=== PATIENT | female | born 1960 | race Caucasian/White ===

== ENCOUNTER 2017-06-25 07:12 | Emergency (ER) | payer SELFPAY ==
[2017-06-25] MEDS ORDERED: IV NORMAL SALINE 1,000ML 1,000 ML IV SCH (07:37)
[2017-06-25] MEDS ORDERED: ONDANSETRON PF 4 MG/2 ML VIAL. IV ONE ×2 (07:45→12:45)
[2017-06-25] MEDS: fentaNYL PF 100 MCG/2 ML VIAL IV PRN ×2 (07:47→08:33)
--- NOTE | 2017-06-25 07:49 | PHYS DOC ---
Adult General Chief Complaint Chief Complaint: abdominal pain HPI HPI Patient is a 56-year-old female to the ED by her [id number] for the complaint of abdominal pain for one week. Patient is usually in good health. She has no chronic medical problems. She developed right upper quadrant abdominal pain about a week ago today. She's had some nausea, vomiting, anorexia , and diarrhea. Denies blood in the vomit or diarrhea. She's been pretty much in bed for a week. She's never had anything like this before. No one else at home is sick. At this time the pain is 10 out of 10. She has had fevers and shaking chills. No UTI symptoms although she did have a UTI about 3 weeks ago. That was diagnosed because she had dysuria and lower abdominal discomfort, she finished her antibiotics, the symptoms went away and have not recurred. 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 She has been off work for several week because of being sick. She usually has perfect attendance. Denies smoking, alcohol, or drugs. Patient has had 3 C-sections, no other surgeries. She saw Dr. Finley in the office on and was prescribed ondansetron and told to take Imodium. Her last diarrhea stool was just a little bit when she went to the bathroom here in the ED. Review of Systems Review of Systems Constitutional: Positive for fever and chills Eyes: Denies change in visual acuity, redness, or eye pain [] HENT: Denies nasal congestion or sore throat [] Respiratory: It hurts to breathe, she has coughed up a little phlegm, it does not sound like primarily a cough however Cardiovascular: Denies chest pain GI: As in history of present illness : Denies dysuria currently, recent UTI as in history of present illness Musculoskeletal: Denies back pain or joint pain [] Integument: Denies rash or skin lesions [] Neurologic: She has had a bad headache Allergies Allergies Allergies Coded Allergies Type Severity Reaction Last Updated Verified No Known Drug Allergies 06/25/17 No Physical Exam Physical Exam Constitutional: Well developed, well nourished, appears uncomfortable, she is ambulatory, alert, mentating normally. Temp 99.0. HENT: Normocephalic, atraumatic, bilateral external ears normal, oropharynx dry , nose normal. [] Eyes: conjunctiva normal, no discharge. [] Neck: Normal range of motion, no stridor. [] Cardiovascular:Heart irregularly irregular tachycardia Lungs & Thorax: Bilateral breath sounds clear to auscultation [] Abdomen: Bowel sounds normal, soft, nondistended, no masses, no pulsatile masses. Tender only in the right upper quadrant with positive Holman's. Negative right lower quadrant tenderness. No rebound or guarding. Skin: Warm, dry, no erythema, no rash. [] Extremities: No tenderness, no cyanosis, no clubbing, ROM intact, no edema. [] Neurologic: Alert and oriented X 3, normal motor function, normal sensory function, no focal deficits noted. [] EKG EKG 12-lead EKG read by me. Sinus rhythm with very frequent PACs. Heart rate 127. Underlying sinus rate appears to be about 100. There is mild ST depression in V4 through V6. There is no ST elevation. Possible ischemia versus rate dependent. [id number][] Radiology/Procedures Radiology/Procedures Right upper quadrant ultrasound negative for gallbladder etiology. CT scan shows an 8 mm stone in the proximal right ureter with some hydronephrosis. Course & Med Decision Making Course & Med Decision Making Pertinent Labs and Imaging studies reviewed. (See chart for details) 56-year-old healthy female brought by her [id number] with a chief complaint of right upper quadrant abdominal pain for one week, accompanied by fever, chills, nausea, vomiting, anorexia, small amount of diarrhea. She appears dehydrated, she is tachycardic and gave us only a small urine sample that is dark in appearance. We will give her some IV fluids, IV pain and nausea medications, do some labs, chest x-ray, and right upper quadrant ultrasound. She is agreeable to this plan. Patient's initial heart rate was 130s to 150s, irregular but it turned out to be sinus with PACs. She was given 2 L of IV fluids in the ED and her heart rate came down to the 90s. She felt Much better and her color improved after her hydration. Patient's imaging studies show a large stone in the proximal right ureter. Labs concerning for a mildly elevated troponin in addition to some leukocytosis. Patient needs to be hospitalized where she can have a urologist, I discussed this with the patient and her daughter. They are in favor of transfer to [facility]. I called [facility] transfer line and spoke with the hospitalist on-call who will accept the patient to be transferred to [facility]. Also made them aware of her mild troponin elevation, tachycardia with PACs. Transfer paperwork was completed, patient transferred by EMS to [facility]. Patient remained stable and improved in the ED [] Dragon Disclaimer Dragon Disclaimer This chart was dictated in whole or in part using Voice Recognition software in a busy, high-work load, and often noisy Emergency Department environment. It may contain unintended and wholly unrecognized errors or omissions. Departure Departure: Impression: Primary Impression: Calculus of proximal right ureter Additional Impressions: Ureteral colic Elevated serum creatinine Elevated troponin Disposition: XF SHT-TRM HOSP Condition: IMPROVED Problem Qualifiers GUILLERMO CRAIN MD Jun 25, 2017 07:49
--- NOTE | 2017-06-25 07:50 | EKG ---
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
[2017-06-25 08:03] LABS: BILIRUBIN,URINE NEG (NEG); CLARITY,URINE HAZY; COLOR,URINE YELLOW; GLUCOSE,URINE NEG (NEG); NITRITE,URINE NEG (NEG); UROBILINOGEN,URINE 1 mg/dL (0.2 mg/dL)
[2017-06-25 08:06] LABS: BASO % 0 % (0-3); EOS # 0.3 x10^3/uL (0.0-0.7); EOS % 2 % (0-3); HEMATOCRIT 33.6 % (36.0-47.0); HEMOGLOBIN 11.3 g/dL (12.0-15.5); LYMPH # 0.2 x10^3/uL (1.0-4.8); LYMPH % 1 % (24-48); MEAN CORPUSCULAR HEMOGLOBIN 30 pg (25-35); MEAN CORPUSCULAR HGB CONC 34 g/dL (31-37); MEAN CORPUSCULAR VOLUME 89 fL (79-100); MONO # 0.1 x10^3/uL (0.0-1.1); MONO % 1 % (0-9); NEUT % 96 % (31-73); PLATELET COUNT 81 x10^3/uL (140-400); RED BLOOD COUNT 3.77 x10^6/uL (3.50-5.40); RED CELL DISTRIBUTION WIDTH 14.1 % (11.5-14.5); WHITE BLOOD COUNT 12.6 x10^3/uL (4.0-11.0)
[2017-06-25] MEDS ORDERED: IV NORMAL SALINE 1,000ML 1,000 ML IV ONE (08:15)
--- NOTE | 2017-06-25 08:19 | RAD ---
EXAM: CHEST 1 VIEW History: Right upper quadrant pain, tachycardia COMPARISON: None available. TECHNIQUE: Single portable radiograph of the chest FINDINGS: The cardiac silhouette is unremarkable. The lungs are clear bilaterally. The costophrenic sulci are clear and well demarcated. IMPRESSION: No radiographic evidence of an acute cardiopulmonary process.
[2017-06-25 08:21] LABS: ALBUMIN 1.9 g/dL (3.4-5.0); ALBUMIN/GLOBULIN RATIO 0.4 (1.0-1.7); CALCIUM 8.3 mg/dL (8.5-10.1); CREATININE 2.1 mg/dL (0.6-1.0); GFR 24.4; TOTAL BILIRUBIN 0.8 mg/dL (0.2-1.0); TOTAL PROTEIN 6.2 g/dL (6.4-8.2)
[2017-06-25 08:22] LABS: POTASSIUM 2.7 mmol/L (3.5-5.1)
[2017-06-25] MEDS ORDERED: POTASSIUM CHLORIDE 20 MEQ/15 ML ORAL LIQUID. PEG ONE (08:30)
--- NOTE | 2017-06-25 09:14 | RAD ---
Examination: Ultrasound abdomen limited History: History of right upper quadrant pain Comparison: None available Findings: The pancreas is poorly visualized. The visualized pancreas grossly appears unremarkable. The visualized IVC, is patent. No evidence of gallstones identified within the gallbladder. The common bile duct measures 4.6 mm in transverse dimension. The liver measures 19.5 cm in length. The right kidney measures 13.6 x 6.9 x 6.8 cm. There is mild prominent appearing right renal pelvis and the prominent calyces likely mild hydronephrosis. Impression: 1. Mild right hydronephrosis. 2. No evidence of gallstones. 3. Mild hepatomegaly.
--- NOTE | 2017-06-25 10:02 | RAD ---
Examination: CT of the abdomen pelvis with contrast History: History of right upper quadrant pain. Comparison: None available Technique: Axial CT images of the abdomen pelvis were performed without contrast with coronal and sagittal reformats are performed PQRS Compliance Statement: One or more of the following individualized dose reduction techniques were utilized for this examination: 1. Automated exposure control 2. Adjustment of the mA and/or kV according to patient size 3. Use of iterative reconstruction technique Findings: Minimal bibasal lung atelectasis. No evidence of free air identified in the abdomen. The evaluation of the solid organs is limited due to lack of IV contrast. Evaluation of bowel is limited due to lack of oral contrast. The visualized noncontrasted spleen, adrenals grossly appears unremarkable. The liver appears mildly enlarged. The gallbladder is mildly distended. The stomach is mildly distended. The small bowel is nondilated. The visualized noncontrasted pancreas grossly appears unremarkable. The small bowel is nondilated. Feces and gas noted in the colon. The appendix is normal. Small fat-containing left inguinal hernia. Few colonic diverticula identified. Urinary bladder is mildly distended. The visualized uterus, adnexa grossly appears unremarkable. Small amount of free fluid identified in the pelvis. Mild right-sided hydronephrosis is identified with 8 mm calculus identified in the proximal right ureter just distal to the right ureteropelvic junction. Minimal fat stranding identified about the proximal right ureter. The caliber of the aorta grossly appears unremarkable. No evidence of lytic bony destructive lesion. Moderate degenerative disease lumbar spine. Impression: 1. 8 mm calculus is identified in the proximal right ureter just distal to the right ureteropelvic junction causing mild right-sided hydronephrosis with minimal surrounding fat stranding. 2. Mild hepatomegaly. 3. Small amount of free fluid identified in the pelvis.
[2017-06-25 10:25] LABS: BACTERIA,URINE MOD /HPF (0-FEW); BILIRUBIN,URINE NEG (NEG); CLARITY,URINE HAZY; COLOR,URINE AMBER; GLUCOSE,URINE NEG (NEG); NITRITE,URINE NEG (NEG); UROBILINOGEN,URINE 1 mg/dL (0.2 mg/dL)
[2017-06-25 10:26] LABS: HYALINE CASTS, URINE OCC /HPF; SQUAMOUS EPITHELIAL CELL,UR FEW /LPF
[2017-06-25] MEDS ORDERED: ONDANSETRON PF 4 MG/2 ML VIAL. ONE (12:23)
[2017-06-25 12:24] VITALS: BP 107/54
== END 2017-06-25 12:55 | disposition short-term general hospital (02) ==
LOC: ER 07:12
DX: N20.1 Calculus of ureter (principal); R79.89 Other specified abnormal findings of blood chemistry; Z87.440 Personal history of urinary (tract) infections
CPT/HCPCS: 36415; 71010; 74176; 76705; 80053; 81001; 82553; 83690; 84484; 85025; 85610; 85730; 87086; 93005; 96361; 96374; 96375; 96376; 99285; J2405; J3010; 81003; 87186; J7030

== ENCOUNTER 2018-12-25 08:22 | Inpatient (IN) | payer SELFPAY ==
[~2018-12-25] VITALS: Ht 170.2 cm; Wt 93.4 kg
[2018-12-25] VITALS (24 sets, daily range): BP systolic 105–148; BP diastolic 70–112
[2018-12-25] MEDS ORDERED: IV NORMAL SALINE 100ML 100 ML ONE (08:49)
[2018-12-25] MEDS ORDERED: dilTIAZem 25 MG/5 ML VIAL IVP ONE ×2 (08:49→09:00)
[2018-12-25] MEDS: dilTIAZem VIAL 125 MG in IV NORMAL SALINE 100ML 100 ML IV PRN ×2 (08:58→18:23)
[2018-12-25 09:01] LABS: BASO # 0.1 x10^3/uL (0.0-0.2); BASO % 1 % (0-3); EOS % 0 % (0-3); HEMATOCRIT 39.7 % (36.0-47.0); HEMOGLOBIN 13.2 g/dL (12.0-15.5); LYMPH # 1.6 x10^3/uL (1.0-4.8); LYMPH % 17 % (24-48); MEAN CORPUSCULAR HEMOGLOBIN 30 pg (25-35); MEAN CORPUSCULAR HGB CONC 33 g/dL (31-37); MEAN CORPUSCULAR VOLUME 92 fL (79-100); MONO # 0.7 x10^3/uL (0.0-1.1); MONO % 7 % (0-9); NEUT # 7.2 x10^3uL (1.8-7.7); NEUT % 76 % (31-73); PLATELET COUNT 337 x10^3/uL (140-400); RED BLOOD COUNT 4.34 x10^6/uL (3.50-5.40); RED CELL DISTRIBUTION WIDTH 13.7 % (11.5-14.5); WHITE BLOOD COUNT 9.6 x10^3/uL (4.0-11.0)
[2018-12-25 09:15] LABS: ALBUMIN 3.2 g/dL (3.4-5.0); ALBUMIN/GLOBULIN RATIO 0.8 (1.0-1.7); CALCIUM 9.2 mg/dL (8.5-10.1); GFR 56.9; POTASSIUM 3.8 mmol/L (3.5-5.1); TOTAL BILIRUBIN 0.6 mg/dL (0.2-1.0)
--- NOTE | 2018-12-25 09:35 | PHYS DOC ---
Past History Past Medical History: No Pertinent History, Kidney Stones Past Surgical History: No Surgical History Alcohol Use: None Drug Use: None Adult General Chief Complaint Chief Complaint: SHORTNESS OF BREATH HPI HPI 58-year-old female presents with shortness of breath for the last 2-3 weeks. The patient her PCP and treated for bronchitis as well as treated with levofloxacin. She completed this treatment several days ago. Patient continues to have these bouts of shortness of breath with any exertion. If she walks across the room, she feels out of breath. She denies chest pain. She has not noticed a rapid heart beat. She has no cardiac history. She presents today because the shortness breath with exertion seems to be getting worse and she is unable to go back to work. She denies fever or chills. She denies cough or chest pain. Review of Systems Review of Systems Constitutional: Denies fever or chills [] Eyes: Denies change in visual acuity, redness, or eye pain [] HENT: Denies nasal congestion or sore throat [] Respiratory: shortness of breath [] Cardiovascular: No additional information not addressed in HPI [] GI: Denies abdominal pain, nausea, vomiting, bloody stools or diarrhea [] : Denies dysuria or hematuria [] Musculoskeletal: Denies back pain or joint pain [] Integument: Denies rash or skin lesions [] Neurologic: Denies headache, focal weakness or sensory changes [] Endocrine: Denies polyuria or polydipsia [] All other systems were reviewed and found to be within normal limits, except as documented in this note. Current Medications Current Medications Current Medications Medications (Trade) Dose Ordered Sig/Marcella Start Time Stop Time Status Last Admin Dose Admin Diltiazem HCl (Cardizem Iv Push) 20 mg 1X ONCE 12/25/18 09:00 12/25/18 09:01 DC 12/25/18 08:57 20 MG Diltiazem HCl (Cardizem) 125 mg STK-MED ONCE 12/25/18 08:48 12/25/18 08:49 DC Diltiazem HCl 125 mg/Sodium Chloride 125 ml @ 5 mls/hr CONT PRN 12/25/18 09:20 12/25/18 08:58 5 MLS/HR Sodium Chloride 100 ml @ As Directed STK-MED ONCE 12/25/18 08:49 12/25/18 08:50 DC Allergies Allergies Allergies Coded Allergies Type Severity Reaction Last Updated Verified No Known Drug Allergies 06/25/17 No Physical Exam Physical Exam Constitutional: Well developed, well nourished, no acute distress, non-toxic appearance. [] HENT: Normocephalic, atraumatic, bilateral external ears normal, oropharynx moist, no oral exudates, nose normal. [] Eyes: PERRLA, EOMI, conjunctiva normal, no discharge. [] Neck: Normal range of motion, no tenderness, supple, no stridor. [] Cardiovascular:Heart rate 155 irregular rhythm, no murmur [] Lungs & Thorax: Bilateral breath sounds clear to auscultation [] Abdomen: Bowel sounds normal, soft, no tenderness, no masses, no pulsatile masses. [] Skin: Warm, dry, no erythema, no rash. [] Back: No tenderness, no CVA tenderness. [] Extremities: No tenderness, no cyanosis, no clubbing, ROM intact, no edema. [] Neurologic: Alert and oriented X 3, normal motor function, normal sensory function, no focal deficits noted. [] Psychologic: Affect normal, judgement normal, mood normal. [] Current Patient Data Vital Signs Vital Signs Date Time Temp Pulse Resp B/P (MAP) Pulse Ox O2 Delivery O2 Flow Rate FiO2 12/25/18 08:57 151 151/120 12/25/18 08:28 98.5 24 96 Room Air Lab Results Laboratory Tests Test 12/25/18 08:45 White Blood Count 9.6 x10^3/uL (4.0-11.0) Red Blood Count 4.34 x10^6/uL (3.50-5.40) Hemoglobin 13.2 g/dL (12.0-15.5) Hematocrit 39.7 % (36.0-47.0) Mean Corpuscular Volume 92 fL (79-100) Mean Corpuscular Hemoglobin 30 pg (25-35) Mean Corpuscular Hemoglobin Concent 33 g/dL (31-37) Red Cell Distribution Width 13.7 % (11.5-14.5) Platelet Count 337 x10^3/uL (140-400) # Neutrophils (%) (Auto) 76 % (31-73) H Lymphocytes (%) (Auto) 17 % (24-48) L Monocytes (%) (Auto) 7 % (0-9) Eosinophils (%) (Auto) 0 % (0-3) Basophils (%) (Auto) 1 % (0-3) Neutrophils # (Auto) 7.2 x10^3uL (1.8-7.7) Lymphocytes # (Auto) 1.6 x10^3/uL (1.0-4.8) Monocytes # (Auto) 0.7 x10^3/uL (0.0-1.1) Eosinophils # (Auto) 0.0 x10^3/uL (0.0-0.7) Basophils # (Auto) 0.1 x10^3/uL (0.0-0.2) Sodium Level 142 mmol/L (136-145) Potassium Level 3.8 mmol/L (3.5-5.1) Chloride Level 105 mmol/L (98-107) Carbon Dioxide Level 26 mmol/L (21-32) Anion Gap 11 (6-14) Blood Urea Nitrogen 21 mg/dL (7-20) H Creatinine 1.0 mg/dL (0.6-1.0) Estimated GFR (Cockcroft-Gault) 56.9 BUN/Creatinine Ratio 21 (6-20) H Glucose Level 149 mg/dL (70-99) H Calcium Level 9.2 mg/dL (8.5-10.1) Total Bilirubin 0.6 mg/dL (0.2-1.0) Aspartate Amino Transferase (AST) 28 U/L (15-37) Alanine Aminotransferase (ALT) 38 U/L (14-59) Alkaline Phosphatase 97 U/L (46-116) Troponin I Quantitative 0.097 ng/mL (0-0.055) H Total Protein 7.0 g/dL (6.4-8.2) Albumin 3.2 g/dL (3.4-5.0) L Albumin/Globulin Ratio 0.8 (1.0-1.7) L EKG EKG Atrial fibrillation, rate 153, normal axis, no ST elevations or depressions.[] Radiology/Procedures Radiology/Procedures [] Course & Med Decision Making Course & Med Decision Making Pertinent Labs and Imaging studies reviewed. (See chart for details) The patient. Atrial fibrillation. Will treat her with 20 mg of Cardizem IV followed by a Cardizem drip. Her workup is pending. The patient's labs are significant for troponin of 0.097. I discussed the patient with Dr. Ramos and he has accepted the patient for admission. [] Dragon Disclaimer Dragon Disclaimer This electronic medical record was generated, in whole or in part, using a voice recognition dictation system. Departure Departure: Impression: Primary Impression: Atrial fibrillation Disposition: ADMITTED INPATIENT Condition: STABLE Referrals: DESI VILLALOBOS MD (PCP) Problem Qualifiers Primary Impression: Atrial fibrillation Atrial fibrillation type: unspecified Qualified Codes: I48.91 - Unspecified atrial fibrillation MARY BETH COMBS DO Dec 25, 2018 09:35
--- NOTE | 2018-12-25 09:38 | RAD ---
EXAM: AP View of the chest DATE: 12/25/2018 8:42 AM INDICATION: Atrial fibrillation, shortness of air COMPARISON: 06/25/2017 FINDINGS: The heart is borderline enlarged. Atherosclerotic calcifications of the tortuous aorta are seen. Right infrahilar parenchymal airspace opacities are seen, suspicious for developing consolidative process such as pneumonia. Trace right pleural effusion. No pneumothorax. IMPRESSION: 1. Right infrahilar parenchymal airspace opacities, suspicious for developing consolidative process such as pneumonia. 2. Trace right pleural effusion. No pneumothorax. Electronically signed by: Amandeep Ryan MD (12/25/2018 9:35 AM) [facility]
--- NOTE | 2018-12-25 12:52 | PDOC2 ---
CONSULT Date of Admission DATE: 12/25/18 TIME: 12:37 Reason for Consult: chest pain Problem List Problems Medical Problems: (1) Atrial fibrillation with RVR Status: Acute History of Present Illness Ms Cameron is a 58 year old female who presented with complaints of dyspnea and cough. She reports being treated for bronchitis with outpatient antibiotics but no improvement. She reports ongoing cough, some chest discomfort with cough and shortness of breath with minimal exertion. She denies any prior symptoms but does acknowledge occasional sensation of fluttering in her chest. She denies any change in her functional capacity prior to this episode of bronchitis. She was found to be in afib with RVR by the ED. She denies any sensation of her heart racing or skipping currently. Past Medical History bronchitis, GERD, nephrolithiasis, heart murmur Past Surgical History c section x 3 Family History heart disease, stroke, diabetes, meningitis, dementia Social History non smoker, no significant ETOH, no illicit drugs Current Medications Current Medications Diltiazem HCl (Cardizem) 125 mg STK-MED ONCE IV ; Start 12/25/18 at 08:48; Stop 12/25/18 at 08:49; Status DC Diltiazem HCl (Cardizem Iv Push) 25 mg STK-MED ONCE IVP ; Start 12/25/18 at 08:49 ; Stop 12/25/18 at 08:50; Status DC Sodium Chloride 100 ml @ As Directed STK-MED ONCE .ROUTE ; Start 12/25/18 at 08: 49; Stop 12/25/18 at 08:50; Status DC Diltiazem HCl 125 mg/Sodium Chloride 125 ml @ 5 mls/hr CONT PRN IV . Last administered on 12/25/18at 08:58; Start 12/25/18 at 09:20 Diltiazem HCl (Cardizem Iv Push) 20 mg 1X ONCE IVP Last administered on at 08:57; Start 12/25/18 at 09:00; Stop 12/25/18 at 09:01; Status DC Allergies: Coded Allergies: No Known Drug Allergies (Unverified , 06/25/17) Review of System as per HPI otherwise negative General: Alert, Oriented X3, Cooperative, No acute distress HEENT: Atraumatic, EOMI Lungs: Other (decreased bases, otherwise clear) Heart: Normal S1, Normal S2, Other (irregular rate and rhythm, no gallops, clicks or rubs) Abdomen: Normal bowel sounds, Soft, No tenderness Extremities: No cyanosis, Normal pulses, Other (trace edema) Neuro: Normal speech, Strength at 5/5 X4 ext Psych/Mental Status: Mental status NL, Mood NL VITALS Vital Signs Date Time Temp Pulse Resp B/P (MAP) Pulse Ox O2 Delivery O2 Flow Rate FiO2 12/25/18 12:15 128 20 105/83 (90) 95 Room Air 12/25/18 12:06 97.5 Labs Laboratory Tests Test 12/25/18 08:45 White Blood Count 9.6 x10^3/uL (4.0-11.0) Red Blood Count 4.34 x10^6/uL (3.50-5.40) Hemoglobin 13.2 g/dL (12.0-15.5) Hematocrit 39.7 % (36.0-47.0) Mean Corpuscular Volume 92 fL (79-100) Mean Corpuscular Hemoglobin 30 pg (25-35) Mean Corpuscular Hemoglobin Concent 33 g/dL (31-37) Red Cell Distribution Width 13.7 % (11.5-14.5) Platelet Count 337 x10^3/uL (140-400) Neutrophils (%) (Auto) 76 % (31-73) Lymphocytes (%) (Auto) 17 % (24-48) Monocytes (%) (Auto) 7 % (0-9) Eosinophils (%) (Auto) 0 % (0-3) Basophils (%) (Auto) 1 % (0-3) Neutrophils # (Auto) 7.2 x10^3uL (1.8-7.7) Lymphocytes # (Auto) 1.6 x10^3/uL (1.0-4.8) Monocytes # (Auto) 0.7 x10^3/uL (0.0-1.1) Eosinophils # (Auto) 0.0 x10^3/uL (0.0-0.7) Basophils # (Auto) 0.1 x10^3/uL (0.0-0.2) Sodium Level 142 mmol/L (136-145) Potassium Level 3.8 mmol/L (3.5-5.1) Chloride Level 105 mmol/L (98-107) Carbon Dioxide Level 26 mmol/L (21-32) Anion Gap 11 (6-14) Blood Urea Nitrogen 21 mg/dL (7-20) Creatinine 1.0 mg/dL (0.6-1.0) Estimated GFR (Cockcroft-Gault) 56.9 BUN/Creatinine Ratio 21 (6-20) Glucose Level 149 mg/dL (70-99) Calcium Level 9.2 mg/dL (8.5-10.1) Total Bilirubin 0.6 mg/dL (0.2-1.0) Aspartate Amino Transf (AST/SGOT) 28 U/L (15-37) Alanine Aminotransferase (ALT/SGPT) 38 U/L (14-59) Alkaline Phosphatase 97 U/L (46-116) Troponin I Quantitative 0.097 ng/mL (0-0.055) Total Protein 7.0 g/dL (6.4-8.2) Albumin 3.2 g/dL (3.4-5.0) Albumin/Globulin Ratio 0.8 (1.0-1.7) Images CXR -IMPRESSION: 1. Right infrahilar parenchymal airspace opacities, suspicious for developing consolidative process such as pneumonia. 2. Trace right pleural effusion. No pneumothorax. EKG - pending Tele - atrial fibrillation with RVR Assessment/Plan 1. atrial fibrillation with RVR - unknown duration. continue rate control with cardizem. check echo. [id number] = 1. Will start anticoagulation for 1 month as duration of atrial fibrillation is unknown. Continue rate control and plan for outpatient monitor to assess burden with follow up in office in 1 month to discuss options for antiarrhythmic therapy and ongoing anticoagulation at that time. 2. troponin elevation - mild, consistent with probable demand mediated NSTEMI - if no significant abn on echo and no further increase in trop, will plan for outpatient MPI once respiratory issues resolved. 3. bronchitis/Pneumonia - per PCP SINA FREDERICK LEGEND MAKER Dec 25, 2018 12:52
[2018-12-25] MEDS ORDERED: ALBU2.5V8 IH (13:13)
[2018-12-25] MEDS: ACETAMINOPHEN 325 MG TABLET PO PRN (13:59)
[2018-12-25] MEDS ORDERED: AZITHROMYCIN 250 MG TABLET. PO ONE (15:30)
--- NOTE | 2018-12-25 16:01 | CARD ---
MR#: [id number] Date of Study: 12/25/2018 Ordering Physician: SINA FREDERICK, Referring Physician: MARY LOU RUBIO Tech: Patria Melchor RDCS APPROVED REPORT EXAM: Two-dimensional and M-mode echocardiogram with Doppler and color Doppler. Other Information Quality : Good Rhythm : Atrial Fibrillation INDICATION Atrial Fibrillation with RVR 2D DIMENSIONS RVDd3.2 (2.9-3.5cm)Left Atrium(2D)4.9 (1.6-4.0cm) IVSd1.7 (0.7-1.1cm)Aortic Root(2D)3.2 (2.0-3.7cm) LVDd4.9 (3.9-5.9cm)LVOT Diameter2.2 (1.8-2.4cm) PWd1.3 (0.7-1.1cm)LVDs4.4 (2.5-4.0cm) FS (%) 17.0 %SV28.6 ml Aortic Valve AoV Peak Efrain.124.1cm/sAoV VTI16.2cm AO Peak GR.6.2mmHgLVOT Peak Efrain.104.3cm/s LVOT VTI 16.05cmAO Mean GR.3mmHg CAMILA (VMAX)3.90te6YTL (VTI)3.75cm2 AI P 1/2 [id number] Tricuspid Valve TR P. [id number]/sRAP [id number] TR Peak Gr.62ltPvVBXY63grLt LEFT VENTRICLE The left ventricle is normal size. There is mild concentric left ventricular hypertrophy. Left ventri fabio systolic function is moderately impaired. The Ejection Fraction is 35-40%. There is global hypoki nesis of the left ventricle. RIGHT VENTRICLE The right ventricle is normal size. The right ventricular systolic function is normal. ATRIA The left atrium is mildly dilated. The right atrium is mildly dilated. The interatrial septum is inta ct with no evidence for an atrial septal defect or patent foramen ovale as noted on 2-D or Doppler im aging. AORTIC VALVE The aortic valve is calcified but opens well. Doppler and Color Flow revealed mild aortic regurgitati on. There is no significant aortic valvular stenosis. MITRAL VALVE The mitral valve is normal in structure and function. There is no evidence of mitral valve prolapse. There is no mitral valve stenosis. Doppler and Color-flow revealed mild mitral regurgitation. TRICUSPID VALVE The tricuspid valve is normal in structure and function. Doppler and Color Flow revealed mild tricusp id regurgitation. The PA pressure was estimated at 54 mmHg. There is no tricuspid valve stenosis. PULMONIC VALVE The pulmonic valve is not well visualized. Doppler and Color Flow revealed trace pulmonic valvular re gurgitation. There is no pulmonic valvular stenosis. GREAT VESSELS The aortic root is normal in size. The ascending aorta is mildly dilated at 3.6 cm. The IVC is dilate d. PERICARDIAL EFFUSION There is no evidence of significant pericardial effusion. Critical Notification Critical Value: No <Conclusion> The left ventricle is normal size. Left ventricle systolic function is moderately impaired. The Ejection Fraction is 35-40%. There is global hypokinesis of the left ventricle. There is mild concentric left ventricular hypertrophy. There is no significant aortic valvular stenosis. Doppler and Color Flow revealed mild aortic regurgitation. Doppler and Color-flow revealed mild mitral regurgitation. Doppler and Color Flow revealed mild tricuspid regurgitation. The PA pressure was estimated at 54 mmHg. The ascending aorta is mildly dilated at 3.6 cm. Signed by : Myles Campbell MD Electronically Approved : 12/25/2018 16:01:07
--- NOTE | 2018-12-25 16:15 | HP ---
ADMIT DATE: 12/25/2018 HISTORY OF PRESENT ILLNESS: The patient is a 58-year-old female patient who came to the Emergency Room complaining of shortness of breath that has been going on for almost 2-3 weeks. She was seen by her primary care physician, was treated with bronchitis as well as with oral levofloxacin, albuterol inhaler as well as Mucinex. She has completed treatment several days ago. She then continued to have these bouts of shortness of breath with any exertion. She walks across the room, she was out of breath; denied however, any chest pain. She has not noted any rapid heart rate. She has no cardiac history, so she came to the Emergency Room with shortness of breath on exertion that is getting worse and was unable to go back to work and evaluation in the Emergency Room showed that she was actually in atrial fibrillation with rapid ventricular response. Her heart rate was 153 beats per minute, irregularly irregular without ST segment elevation or depression. Her chest x-ray showed that she the heart is borderline enlarged. She has atherosclerotic calcification and tortuous aorta is seen, the impression of the patient that right infrahilar parenchymal airspace opacity suspicious for developing consolidative process such as pneumonia, trace right pleural effusion, no pneumothorax. Her lab work was mostly unremarkable and the patient was admitted to the ICU and she was given a bolus of Cardizem and started on Cardizem drip and we did consult the cardiology team to assist with her management. PAST MEDICAL HISTORY: Her past medical history is significant for nephrolithiasis. She has 3 stones that were removed by cystoscopy and retrograde pyelography and laser lithotripsy. PAST SURGICAL HISTORY: Past surgical history is significant for 3 sections and recent cystoscopy and retrograde pyelography. ALLERGIES: She has no known drug allergies. MEDICATIONS: She has been treated admission on levofloxacin and albuterol by her primary care physician. FAMILY HISTORY: She has 4 sisters and 2 brothers. Her mother is still alive at the age of 81 and has diabetes, CVA and coronary artery bypass graft surgery. Her father is still alive at age of 86 who apparently has a history of meningitis and is currently demented. One of her sister has diabetes. SOCIAL HISTORY: She is , has 2 sons and 1 daughter. She quit smoking about 5 years ago and does not drink alcohol or use recreational drugs. 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 REVIEW OF SYSTEMS: The patient denied any blurring of vision, cataract, glaucoma or macular degeneration. Denied any earache, tinnitus or sensorineural deafness. Denied any nosebleeds, stuffy nose or postnasal drip. Denied any sore throat, sore tongue, toothache, hoarseness of voice or difficulty swallowing. Denied any nausea, vomiting, diarrhea or constipation. Denied any hematemesis, melena or hematochezia. Denied any dysuria, frequency or hematuria. Denied any chest pain. Did complain of shortness of breath on exertion, orthopnea or paroxysmal nocturnal dyspnea. Did complain of cough, but denied any chest pain. Denied any dizziness, lightheadedness, or vertigo. PHYSICAL EXAMINATION: VITAL SIGNS: On arrival to the Emergency Room, the patient was clearly tachypneic, her heart rate was 150, blood pressure was 121/70, temperature was 98.5, respiratory rate 24 and oxygen saturation was 96%. HEENT: Examination of the head, eyes, ears, nose and throat showed normocephalic, atraumatic. NECK: Supple. HEART: Showed normal first and second heart sounds with no gallop or murmur. CHEST: Showed central trachea, equal bilateral expansion, air entry, vesicular sounds with crepitation mostly in the right side. I could not appreciate any rhonchi. ABDOMEN: Distended, soft, nontender. There is no guarding or rigidity. No organomegaly. Her hernial orifices are intact. Bowel sounds normal. NEUROLOGIC: She was awake, alert, responding appropriately. All her cranial nerves are intact. EXTREMITIES: She moves extremities without difficulty. LABORATORY DATA: Her lab work showed a white cell count 9600, hemoglobin 13, hematocrit 39, MCV was 337. Her chemistry showed a serum sodium 142, potassium 3.8, chloride 105, bicarbonate is 26, anion gap of 11, BUN 21, creatinine 1, estimated GFR was 57 mL per minute. Her glucose 149, calcium was 9.2. Total bilirubin, AST, ALT, alkaline phosphatase were normal. Troponin was 0.097. Her total protein was 7, albumin 3.2. ASSESSMENT AND PLAN: So, in summary, this is a 58-year-old female patient with new onset atrial fibrillation with rapid ventricular response. She is now on Cardizem. She has also right infrahilar parenchymal airspace opacity suspicious for developing consolidative process such as pneumonia. She has also trace right-sided pleural effusion. She has mildly elevated troponin, probably demand ischemia. The patient has had an echocardiogram ordered. She is on a Cardizem drip. I probably start her on IV Rocephin as well as Zithromax. Continue with the Cardizem drip and follow her labs closely. MARY LOU RUBIO MD DR: KLAUDIA/allie JOB#: [id number] / [id number]
[2018-12-25] MEDS: LACTOBACILLUS RHAMNOSUS GG 1 CAPSULE. PO SCH (21:44)
[2018-12-26] VITALS (26 sets, daily range): BP systolic 83–148; BP diastolic 51–100
[2018-12-26] MEDS: ACETAMINOPHEN 325 MG TABLET PO PRN (00:40)
[2018-12-26] MEDS: dilTIAZem VIAL 125 MG in IV NORMAL SALINE 100ML 100 ML IV PRN (05:06)
[2018-12-26] MEDS ORDERED: IPRATRPIUM/ALBUTEROL 0.5/2.5MG 3 ML NEBU. ONE (05:20)
[2018-12-26 06:51] LABS: CREATININE 0.9 mg/dL (0.6-1.0); GFR 64.3; POTASSIUM 4.1 mmol/L (3.5-5.1)
[2018-12-26 06:58] LABS: HEMATOCRIT 36.6 % (36.0-47.0); HEMOGLOBIN 11.9 g/dL (12.0-15.5); RED BLOOD COUNT 3.96 x10^6/uL (3.50-5.40); RED CELL DISTRIBUTION WIDTH 13.8 % (11.5-14.5); WHITE BLOOD COUNT 9.6 x10^3/uL (4.0-11.0)
[2018-12-26 07:15] LABS: BACTERIA,URINE 0 /HPF (0-FEW); BILIRUBIN,URINE NEG (NEG); CLARITY,URINE HAZY; COLOR,URINE AMBER; GLUCOSE,URINE NEG (NEG); NITRITE,URINE NEG (NEG); RBC,URINE RARE /HPF (0-2); SQUAMOUS EPITHELIAL CELL,UR OCC /LPF; UROBILINOGEN,URINE 0.2 mg/dL (0.2 mg/dL); WBC,URINE OCC /HPF (0-4)
[2018-12-26] MEDS: IPRATRPIUM/ALBUTEROL 0.5/2.5MG 3 ML NEBU. NEB SCH ×2 (08:00→09:20)
[2018-12-26] MEDS: LACTOBACILLUS RHAMNOSUS GG 1 CAPSULE. PO SCH (10:16)
--- NOTE | 2018-12-26 12:25 | EKG ---
[address] [address] Test Date: 2018-12-25 Test Time: 08:35:33 Pat Name: CORWIN SKELTON Department: Room: ICU01 1 Gender: F Resident Intern: MARINE : 1960 Requested By: MARY BETH COMBS Order Number: [id number] Reading MD: Darvin Cao MD Measurements Intervals [place] Rate: 153 P: ME: QRS: 34 QRSD: 84 T: 107 QT: 310 QTc: 500 Interpretive Statements ATRIAL FIBRILLATION WITH RVR NON-SPECIFIC ST/T CHANGES Electronically Signed On 12-26-2018 15:19:33 TRAINING AND DEVELOPMENT REP by Darvin Cao MD
[2018-12-26] MEDS ORDERED: ASPIRIN 325 MG TABLET PO SCH (13:15)
--- NOTE | 2018-12-26 13:31 | PDOC ---
PROGRESS NOTES Diagnosis Problem Problems Medical Problems: (1) Atrial fibrillation Status: Acute (2) Atrial fibrillation with RVR Status: Acute Assessment Problems Medical Problems: (1) Atrial fibrillation Status: Acute (2) Atrial fibrillation with RVR Status: Acute 1. atrial fibrillation with RVR - rate control improved on cardizem. aspirin at this time for stroke prophylaxis. [id number] = 1. 2. NSTEMI - plan for cardiac cath to rule out CAD 3. Cardiomyopathy - ? rate related vs ICM. Cardiac cath, continue rate control. 4. pneumonia - mgmt per PCP AF rate control improved. In light of elevated cardiac enzymes and systolic dysfunction, plan transfer to [facility] for cardiac cath. [id number] does not indicate need for ongoing anticoagulation however as duration of AF is unknown would recommend OAC for 4 weeks followed by antiarrhythmic therapy of ECV. Could consider KACY/ECV. Further recommendations to follow cardiac cath results. R/B/A explained to patient and all questions answered with regard to cardiac cath and anticoagulation therapy. Subjective no chest pain, dyspnea improving, no lightheadedness. no palpitations Objective Vital Signs Date Time Temp Pulse Resp B/P (MAP) Pulse Ox O2 Delivery O2 Flow Rate FiO2 12/26/18 13:03 115 25 137/86 (103) 97 Room Air 12/26/18 09:20 2.0 12/26/18 05:52 98.3 Intake and Output 12/26/18 07:00 Intake Total 1272.14 ml Output Total 101 ml Balance 1171.14 ml Intake Oral 950 ml IV Total 322.14 ml Output Urine Total 100 ml Stool Total 1 ml # Voids 5 Physical Exam Gen: awake and alert, no acute distress Neck: no bruits CV : irregular rate and rhythm, no gallops, clicks or rubs Lungs: coarse bases otherwise clear abd: soft nontender, bowel sounds present ext: trace edema, + pulses Review of Relevant I have reviewed the following items lalo (where applicable) has been applied. Labs Laboratory Tests Test 12/25/18 08:45 12/25/18 11:30 12/25/18 14:30 12/25/18 20:50 White Blood Count 9.6 x10^3/uL (4.0-11.0) Red Blood Count 4.34 x10^6/uL (3.50-5.40) Hemoglobin 13.2 g/dL (12.0-15.5) Hematocrit 39.7 % (36.0-47.0) Mean Corpuscular Volume 92 fL (79-100) Mean Corpuscular Hemoglobin 30 pg (25-35) Mean Corpuscular Hemoglobin Concent 33 g/dL (31-37) Red Cell Distribution Width 13.7 % (11.5-14.5) Platelet Count 337 x10^3/uL (140-400) Neutrophils (%) (Auto) 76 % (31-73) Lymphocytes (%) (Auto) 17 % (24-48) Monocytes (%) (Auto) 7 % (0-9) Eosinophils (%) (Auto) 0 % (0-3) Basophils (%) (Auto) 1 % (0-3) Neutrophils # (Auto) 7.2 x10^3uL (1.8-7.7) Lymphocytes # (Auto) 1.6 x10^3/uL (1.0-4.8) Monocytes # (Auto) 0.7 x10^3/uL (0.0-1.1) Eosinophils # (Auto) 0.0 x10^3/uL (0.0-0.7) Basophils # (Auto) 0.1 x10^3/uL (0.0-0.2) Sodium Level 142 mmol/L (136-145) Potassium Level 3.8 mmol/L (3.5-5.1) Chloride Level 105 mmol/L (98-107) Carbon Dioxide Level 26 mmol/L (21-32) Anion Gap 11 (6-14) Blood Urea Nitrogen 21 mg/dL (7-20) Creatinine 1.0 mg/dL (0.6-1.0) Estimated GFR (Cockcroft-Gault) 56.9 BUN/Creatinine Ratio 21 (6-20) Glucose Level 149 mg/dL (70-99) Calcium Level 9.2 mg/dL (8.5-10.1) Total Bilirubin 0.6 mg/dL (0.2-1.0) Aspartate Amino Transf (AST/SGOT) 28 U/L (15-37) Alanine Aminotransferase (ALT/SGPT) 38 U/L (14-59) Alkaline Phosphatase 97 U/L (46-116) Troponin I Quantitative 0.097 ng/mL (0-0.055) 0.105 ng/mL (0-0.055) 0.103 ng/mL (0-0.055) Total Protein 7.0 g/dL (6.4-8.2) Albumin 3.2 g/dL (3.4-5.0) Albumin/Globulin Ratio 0.8 (1.0-1.7) Nasal Screen MRSA (PCR) Negative (Negative) Test 12/26/18 05:38 12/26/18 05:45 White Blood Count 9.6 x10^3/uL (4.0-11.0) Red Blood Count 3.96 x10^6/uL (3.50-5.40) Hemoglobin 11.9 g/dL (12.0-15.5) Hematocrit 36.6 % (36.0-47.0) Mean Corpuscular Volume 92 fL (79-100) Mean Corpuscular Hemoglobin 30 pg (25-35) Mean Corpuscular Hemoglobin Concent 33 g/dL (31-37) Red Cell Distribution Width 13.8 % (11.5-14.5) Platelet Count 306 x10^3/uL (140-400) Sodium Level 142 mmol/L (136-145) Potassium Level 4.1 mmol/L (3.5-5.1) Chloride Level 106 mmol/L (98-107) Carbon Dioxide Level 27 mmol/L (21-32) Anion Gap 9 (6-14) Blood Urea Nitrogen 17 mg/dL (7-20) Creatinine 0.9 mg/dL (0.6-1.0) Estimated GFR (Cockcroft-Gault) 64.3 Glucose Level 112 mg/dL (70-99) Calcium Level 9.0 mg/dL (8.5-10.1) Urine Collection Type Unknown Urine Color Rhonda Urine Clarity Hazy Urine pH 5.5 Urine Specific Gardner 1.015 Urine Protein Neg (NEG-TRACE) Urine Glucose (UA) Neg mg/dL (NEG) Urine Ketones (Stick) Neg mg/dL (NEG) Urine Blood Trace (NEG) Urine Nitrite Neg (NEG) Urine Bilirubin Neg (NEG) Urine Urobilinogen Dipstick 0.2 mg/dL (0.2 mg/dL) Urine Leukocyte Esterase Neg (NEG) Urine RBC Rare /HPF (0-2) Urine WBC Occ /HPF (0-4) Urine Squamous Epithelial Cells Occ /LPF Urine Bacteria 0 /HPF (0-FEW) Urine Mucus Slight /LPF Medications Current Medications Diltiazem HCl (Cardizem) 125 mg STK-MED ONCE IV ; Start 12/25/18 at 08:48; Stop 12/25/18 at 08:49; Status DC Diltiazem HCl (Cardizem Iv Push) 25 mg STK-MED ONCE IVP ; Start 12/25/18 at 08:49 ; Stop 12/25/18 at 08:50; Status DC Sodium Chloride 100 ml @ As Directed STK-MED ONCE .ROUTE ; Start 12/25/18 at 08: 49; Stop 12/25/18 at 08:50; Status DC Diltiazem HCl 125 mg/Sodium Chloride 125 ml @ 5 mls/hr CONT PRN IV . Last administered on 12/26/18at 05:06; Start 12/25/18 at 09:20; Stop 12/26/18 at 13:12; Status DC Diltiazem HCl (Cardizem Iv Push) 20 mg 1X ONCE IVP Last administered on at 08:57; Start 12/25/18 at 09:00; Stop 12/25/18 at 09:01; Status DC Acetaminophen (Tylenol) 650 mg PRN Q6HRS PRN PO PAIN / TEMP Last administered on 12/26/18at 00:40; Start 12/25/18 at 13:45 Ceftriaxone Sodium 1 gm/ Sodium Chloride 50 ml @ 100 mls/hr Q24H IV Last administered on 12/25/18 16:42; Start 12/25/18 at 15:30 Azithromycin (Zithromax) 500 mg 1X ONCE PO Last administered on 12/25/18at 16:42 ; Start 12/25/18 at 15:30; Stop 12/25/18 at 15:31; Status DC Lactobacillus Rhamnosus (Culturelle) 1 cap BID PO Last administered on at 10:16; Start 12/25/18 at 21:00 Albuterol/ Ipratropium (Duoneb) 3 ml RTQID NEB Last administered on 12/26/18at 09 :20; Start 12/26/18 at 08:00 Albuterol/ Ipratropium (Duoneb) 3 ml STK-MED ONCE .ROUTE Last administered on at 05:22; Start 12/26/18 at 05:20; Stop 12/26/18 at 05:21; Status DC Diltiazem HCl (Cardizem 24hr Cd) 240 mg DAILY PO ; Start 12/26/18 at 13:15 Aspirin (Kalyn Aspirin) 325 mg DAILYWBKFT PO ; Start 12/26/18 at 13:15 Active Scripts Active Reported Ventolin Hfa Inhaler (Albuterol Sulfate) 18 Gm Hfa.aer.ad 1 Puff IH PRN PRN Vitals/I & O Vital Sign - Last 24 Hours 12/25/18 12/25/18 12/25/18 12/25/18 13:48 14:18 15:07 15:18 Temp 97.9 Pulse 117 108 113 96 Resp 25 23 20 22 B/P (MAP) 121/76 (91) 119/77 (91) 113/87 (96) 134/76 (95) Pulse Ox 95 93 95 95 O2 Delivery Room Air Room Air Room Air Room Air 12/25/18 12/25/18 12/25/18 12/25/18 15:48 15:48 16:18 16:48 Pulse 112 112 108 Resp 24 32 32 B/P (MAP) 119/103 (108) 129/99 (109) 143/75 (97) Pulse Ox 95 94 96 O2 Delivery Room Air Room Air Room Air Room Air 12/25/18 12/25/18 12/25/18 12/25/18 17:18 17:48 18:18 18:45 Pulse 100 115 116 114 Resp 20 22 23 B/P (MAP) 142/95 (111) 148/110 (123) 112/72 (85) 120/96 (104) Pulse Ox 96 94 95 96 O2 Delivery Room Air Room Air Room Air Room Air 12/25/18 12/25/18 12/25/18 12/25/18 19:57 20:18 20:30 20:48 Temp 98.4 Pulse 98 102 110 Resp 20 B/P (MAP) 134/79 (97) 125/94 (104) 134/85 (101) Pulse Ox 96 95 96 O2 Delivery Room Air Room Air Room Air Room Air 12/25/18 12/25/18 12/25/18 12/25/18 21:48 22:22 22:49 23:18 Pulse 92 92 86 92 Resp 20 B/P (MAP) 119/100 (106) 111/81 (91) 118/94 (102) 116/96 (103) Pulse Ox 96 96 93 96 O2 Delivery Room Air Room Air Room Air Room Air 12/25/18 12/26/18 12/26/18 12/26/18 23:57 00:09 00:23 00:48 Temp 98.5 Pulse 108 83 106 Resp 18 B/P (MAP) 120/70 (87) 143/81 (101) 141/73 (95) Pulse Ox 94 97 97 O2 Delivery Room Air Room Air Nasal Cannula Nasal Cannula O2 Flow Rate 2.0 2.0 12/26/18 12/26/18 12/26/18 12/26/18 01:18 01:48 01:58 02:08 Pulse 111 80 80 82 Resp B/P (MAP) 148/95 (112) 94/51 (65) 83/67 (72) 99/53 (68) Pulse Ox 95 91 90 92 O2 Delivery Nasal Cannula Nasal Cannula Nasal Cannula Nasal Cannula O2 Flow Rate 2.0 3.0 4.0 4.0 12/26/18 12/26/18 12/26/18 12/26/18 02:18 02:28 02:38 02:48 Pulse 88 90 86 102 Resp B/P (MAP) 94/59 (71) 109/62 (78) 99/55 (70) 114/73 (87) Pulse Ox 90 92 91 95 O2 Delivery Nasal Cannula Nasal Cannula Nasal Cannula Nasal Cannula O2 Flow Rate 4.0 4.0 4.0 3.0 12/26/18 12/26/18 12/26/18 12/26/18 03:08 03:28 03:48 04:12 Pulse 88 86 78 84 Resp 18 20 B/P (MAP) 123/76 (92) 104/78 (87) 128/72 (90) 125/77 (93) Pulse Ox 95 96 96 98 O2 Delivery Nasal Cannula Nasal Cannula Nasal Cannula Nasal Cannula O2 Flow Rate 3.0 3.0 3.0 3.0 12/26/18 12/26/18 12/26/18 12/26/18 04:28 04:52 05:08 05:23 Pulse 64 82 78 Resp 18 19 B/P (MAP) 127/84 (98) 124/61 (82) 113/60 (77) Pulse Ox 97 98 96 97 O2 Delivery Nasal Cannula Nasal Cannula Nasal Cannula Nasal Cannula O2 Flow Rate 3.0 3.0 3.0 3.0 12/26/18 12/26/18 12/26/18 12/26/18 05:28 05:52 05:54 06:18 Temp 98.3 Pulse 92 101 100 Resp 20 18 B/P (MAP) 131/70 (90) 125/83 (97) 120/70 (87) Pulse Ox 98 95 96 O2 Delivery Nasal Cannula Nasal Cannula Nasal Cannula Nasal Cannula O2 Flow Rate 3.0 2.0 2.0 2.0 12/26/18 12/26/18 12/26/18 12/26/18 07:20 08:18 08:30 09:20 Pulse 94 99 B/P (MAP) 139/77 (97) 143/100 (114) Pulse Ox 96 96 99 O2 Delivery Room Air Room Air Room Air Nasal Cannula O2 Flow Rate 2.0 12/26/18 12/26/18 12/26/18 12/26/18 09:33 11:46 12:09 13:03 Pulse 105 110 115 Resp 23 20 25 B/P (MAP) 140/90 (107) 134/97 (109) 137/86 (103) Pulse Ox 99 97 97 O2 Delivery Room Air Room Air Room Air Room Air Intake and Output 12/25/18 12/25/18 12/26/18 15:00 23:00 07:00 Intake Total 647.14 ml 625 ml Output Total 1 ml 100 ml Balance 646.14 ml 525 ml SINA FR[employer] Dec 26, 2018 13:31
[2018-12-26 13:57] LABS: THYROID STIM HORMONE (TSH) 2.391 uIU/mL (0.358-3.740)
--- NOTE | 2018-12-26 14:06 | DS ---
DATE OF DISCHARGE: 12/25/2018 HISTORY OF PRESENT ILLNESS: The patient is a 58-year-old female patient, who was admitted with increasing shortness of breath, cough has been going on for almost 2 weeks now. She apparently was seen by her primary care physician and was treated for bronchitis with oral Levaquin, albuterol inhaler as well as Mucinex. She also has completed treatment several days ago. She continued to have this part of shortness of breath with any exertion. Even when she walks across the room she was out of breath. Denied; however, any chest pain. She has not noted to have rapid heart rate and has no cardiac history. She was seen in the Emergency Room, was found to be in atrial fibrillation with rapid ventricular response with a heart rate was 153 beats per minute irregularly irregular without ST segment elevation. Her chest x-ray showed that the heart is borderline enlarged. She has atherosclerotic calcification and some right infrahilar parenchymal airspace opacity suspicious for developing consolidative process such as pneumonia as a trace of right-sided pleural effusion, but no pneumothorax. Her cardiac enzymes were slightly elevated and rising and has had an echocardiogram done, which showed that her left ventricular size is normal; however, the left ventricular systolic function is moderately impaired with an ejection fraction of 35-40%. She has global hypokinesis of the left ventricle with mild concentric left ventricular hypertrophy, but no significant valvular disease. Her pulmonary artery pressure was estimated at 54 mmHg and ascending aorta is mildly dilated at 3.6 cm and therefore a decision was made to transfer her to [facility] for cardiac catheterization. PHYSICAL EXAMINATION: GENERAL: On examining her today, she looked well and was clearly in no apparent respiratory distress. No pallor, jaundice, cyanosis, or thyromegaly. No jugular venous distension. No limb edema. VITAL SIGNS: Her heart rate was 115, blood pressure was 137/86, temperature was 98, respiratory rate was 25, and oxygen saturation was 97% on room air. HEAD, EYES, EARS, NOSE AND THROAT: Normocephalic, atraumatic. NECK: Supple. HEART: Showed normal first and second heart sounds. No gallop, rub or murmur. CHEST: Clear to auscultation. No crepitation or rhonchi. ABDOMEN: Distended, soft, nontender. No guarding or rigidity. No organomegaly. All hernial orifice intact. Bowel sounds normal. NEUROLOGIC: She is awake, alert, responding appropriately. All cranial nerves intact. EXTREMITIES: She moves extremities without difficulty. LABORATORY DATA: This morning showed a serum sodium 142, potassium 4.1, chloride 106, bicarbonate 27, anion gap of 9, BUN 17, creatinine 0.9, estimated GFR was 64 mL per minute. Her glucose 112, calcium was 9. Her white cell count was 9600, hemoglobin 11.9, hematocrit 37, MCV 92, and platelet count 306,000. DISCHARGE MEDICATIONS: She was transferred to [facility] to continue on aspirin 325 mg once a day, diltiazem 240 mg once a day, DuoNeb 4 times a day, lactobacillus rhamnosus 1 capsule twice a day and ceftriaxone 1 g IV daily, acetaminophen 650 mg every 6 hours as needed. FINAL DISCHARGE DIAGNOSES: 1. Non-ST segment elevation myocardial infarction. 2. Acute systolic congestive heart failure, likely due to ischemic cardiomyopathy. 3. New onset atrial fibrillation. 4. Right lower lobe pneumonia. MARY LOU RUBIO MD DR: KLAUDIA/allie JOB#: [id number] / [id number]
== END 2018-12-26 15:02 | disposition short-term general hospital (02) | DRG 280 ==
LOC: ER 08:22 → ICU 10:10 → ER 10:50
PROVIDERS: ADMIT Internal Medicine; ATTEND Internal Medicine
DX: I21.4 Non-ST elevation (NSTEMI) myocardial infarction (principal); I50.21 Acute systolic (congestive) heart failure; J18.1 Lobar pneumonia, unspecified organism; I48.91 Unspecified atrial fibrillation; K21.9 Gastro-esophageal reflux disease without esophagitis; J40 Bronchitis, not specified as acute or chronic; I25.5 Ischemic cardiomyopathy; Z87.442 Personal history of urinary calculi; Z83.3 Family history of diabetes mellitus; Z82.3 Family history of stroke; Z87.891 Personal history of nicotine dependence
CPT/HCPCS: 36415; 71045; 80048; 80053; 80061; 81001; 84443; 84484; 85025; 85027; 87641; 93005; 93306; 94640; 96374; J0456; J0696; J3490; J7620; 99285-25